=== PATIENT | male | born 1995 ===

== ENCOUNTER 2025-02-13 17:28 | Emergency (ER) | payer MEDICAID, SELFPAY ==
[2025-02-13 17:29] VITALS: BP 142/86; PULSE 93; RESP 17; TEMP 36.8; O2SAT 98
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
== END 2025-02-13 19:39 ==
PROVIDERS: Emergency Provider Emergency Medicine
DX: Z02.89 Encounter for other administrative examinations (principal); S19.9XXA Unspecified injury of neck, initial encounter; S09.93XA Unspecified injury of face, initial encounter; S09.90XA Unspecified injury of head, initial encounter; S29.9XXA Unspecified injury of thorax, initial encounter; S39.92XA Unspecified injury of lower back, initial encounter; S39.91XA Unspecified injury of abdomen, initial encounter; S69.91XA Unspecified injury of right wrist, hand and finger(s), initial encounter; W22.09XA Striking against other stationary object, initial encounter; V86.55XA Driver of 3- or 4- wheeled all-terrain vehicle (ATV) injured in nontraffic accident, initial encounter
CPT/HCPCS: 70450; 70486; 71250; 72125; 72128; 72131; 73120; 74176; 99284

== ENCOUNTER 2025-05-31 19:55 | Emergency (ER) | payer MEDICAID, SELFPAY ==
[2025-05-31 19:58] VITALS: PULSE 84; O2SAT 99; BMI 21.9
[2025-05-31 20:02] VITALS: BP 151/70; PULSE 84; RESP 19; TEMP 36.7; O2SAT 98; BMI 21.9
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
[2025-05-31] MEDS: FAMOTIDINE INJ 10 MG/ML VIAL 2 ML 20 MG IVP (20:31)
[2025-05-31] MEDS: DEXAMETHASONE SOD PHOS INJ 10 MG/ML VIAL IVP (20:31)
[2025-05-31 22:09] VITALS: BP 141/81; PULSE 74; RESP 19; TEMP 36.8; O2SAT 98
== END 2025-05-31 22:13 ==
PROVIDERS: Emergency Provider Emergency Medicine
DX: T63.481A Toxic effect of venom of other arthropod, accidental (unintentional), initial encounter (principal); L50.0 Allergic urticaria; Z91.038 Other insect allergy status; Z87.891 Personal history of nicotine dependence
CPT/HCPCS: 96374; 96375; 99283; J1100; J1200; J3490